=== PATIENT | female | born 1985 | race Caucasian/White ===

== ENCOUNTER → 2023-12-13 00:28 | Outpatient (CLI) | payer BC, SELFPAY ==
--- OUTSIDE RECORDS SUMMARY | 2023-12-13 00:58 | XMS_ITS | Encounter Summary ---
Author Organization [place] [address] Care Team Providers Care Coconut Candy Maker Name Role Phone Lily Webber APRN Primary Care Provider [phone] Reason for Referral * Consultation (Priority 3) - Closed Specialty Diagnoses / Procedures Referred By Leydi valles Referred To Contact Dermatology Diagnoses Melanocytic nevus, unspecified location numerous moles, fam hx melanoma Lily Webber, GROCERY SHOPPER [address] [place] [address] [facility] [address] [place] [address] Referral ID Status Reason Start Date Expiration Date V isits Requested Visits Authorized [id number] Closed Consult, Test & Treat PCP Updated and/or Approved 11/30/2022 11/30/2023 6 6 Encounter Details Date Type Department Care Team (Latest Contact Info) Description 11/30/2022 Transcribe Orders eDH Incoming Referrals [phone] Lily Webber, GROCERY SHOPPER [address] [place], [place] [id number] Melanocytic nevus, unspecified location Social History Tobacco Use Types Packs/Day Years Used Date Smoking Tobacco: Never Assessed Sex and Gender Information Value Date Recorded Sex Assigned at Not on file Gender Identity Not on file Sexual Orientation Not on file documented as of this encounter Plan of Treatment Scheduled Referrals Name Type Priority Associated Diagnoses Orde r Schedule Referral to Dermatology Outpatient Referral Routine Melanocytic nevus, unspecified location Ordered: 11/30/2022 documented as of this encounter Visit Diagnoses Diagnosis Melanocytic nevus, unspecified location documented in this encounter Care Teams Coconut Candy Maker Relationship Specialty Start Date End Date Lily Webber, GROCERY SHOPPER [address] [place] [address] PCP - General Internal Medicine 11/30/22 documented as of this encounter
--- OUTSIDE RECORDS SUMMARY | 2023-12-13 00:58 | XMS_ITS | Clinical Summary ---
Author Organization [facility] [place] [address] Care Team Providers Care Womens Volleyball Coach Name Role Phone Lily Webber APRN Primary Care Provider Social History Tobacco Use Types Packs/Day Years Used Date Smoking Tobacco: Never Assessed Sex and Gender Information Value Date Recorded Sex Assigned at Not on file Gender Identity Not on file Sexual Orientation Not on file Plan of Treatment Health Maintenance Due Date Last Done Comments HIV screen 2001 Hepatitis C Screening 2001 Hepatitis B vaccine (0-59 yrs) (1) 2002 Tdap adult 2002 Tetanus vaccine 2002 HPV test 2013 PAP Smear 2013 Breast Cancer Share Decision Needed 2023 Breast Cancer screening 2023 Covid-19 Vaccine ( - 24 season) 2023 Influenza (Flu) vaccine (1 o f 1 - Influenza standard series) 02/02/2024 Care Teams Womens Volleyball Coach Relationship Specialty Start Date End Date Lily Webber APRN [address] [place], [place] [address] PCP - General Internal Medicine 11/30/22
--- OUTSIDE RECORDS SUMMARY | 2023-12-13 00:58 | XMS_ITS | Encounter Summary ---
Author Organization [facility] [place] [address] Care Team Providers Care Clinical Applications Manager Name Role Phone Lily Webber APRN Primary Care Provider [phone] Encounter Details Date Type Department Care Team (Latest Contact Info) Description 05/17/2023 Travel Social History Tobacco Use Types Packs/Day Years Used Date Smoking Tobacco: Never Assessed Sex and Gender Information Value Date Recorded Sex Assigned at Not on file Gender Identity Not on file Sexual Orientation Not on file documented as of this encounter Plan of Treatment Not on file documented as of this encounter Visit Diagnoses Not on filedocumented in this encounter Care Teams Clinical Applications Manager Relationship Specialty Start Date End Date Lily Webber APRN [address] [place] [address] PCP - General Internal Medicine 11/30/22 documented as of this encounter
--- OUTSIDE RECORDS SUMMARY | 2023-12-13 00:58 | XMS_ITS | Encounter Summary ---
Author Organization [facility] Address [facility] [place] [address] Care Team Providers Care Education Finance Processor Name Role Phone Lily Webber CAMPAIGN MANAGEMENT SPECIALIST Primary Care Provider [phone] Reason for Visit * Consultation (Priority 3) - Closed Specialty Diagnoses / Procedures Referred By Leydi valles Referred To Contact Dermatology Diagnoses Melanocytic nevus, unspecified location numerous moles, fam hx melanoma Lily Webber, CAMPAIGN MANAGEMENT SPECIALIST [address] [place] [address] [facility] [address] [place] [address] Referral ID Status Reason Start Date Expiration Date V isits Requested Visits Authorized [id number] Closed Consult, Test & Treat PCP Updated and/or Approved 11/30/2022 11/30/2023 6 6 Encounter Details Date Type Department Care Team (Late st Contact Info) Description 05/17/2023 8:00 AM EST Office Visit Dermatology at [facility] [address] [place] [address] Tavo Almazan MD [facility] DR SHAMIKA CAB[place] [address] Milia; Lentigines; Multiple benign nevi of upper extremity, lower extremity, and trunk; Simms angioma; Plantar wart; Irritated nevus Social History Tobacco Use Types Packs/Day Years Used Date Smoking Tobacco: Never Assessed Sex and Gender Information Value Date Recorded Sex Assigned at Not on file Gender Identity Not on file Sexual Orientation Not on file documented as of this encounter Progress Notes * Tavo Almazan MD - 05/17/2023 8:00 AM EST Images from the original note were not included. DEPARTMENT OF DERMATOLOGY Medical Dermatology Clinic Note Provider: Tavo Almazan MD Patient's preferred name Meg Preferred contact method for results [x]Phone []myD-H []Letter Detailed phone message OK? Yes Are there any other people with whom we may discuss your care? Past Medical History Date, location, treatment Melanoma N Dysplastic nevi N SCC N BCC N AKs N UV Exposure & Protection N Other relevant past medical history N Family History Details Melanoma -- NMSC -- Other relevant family history Aunt with unknown type of skin cancer Social History Occupation: Principal Hobbies: Other: Originally from [place] but recently moved to [place] from [place] Pre-Procedure Questions Details Allergy to lidocaine, epinephrine, Dermabond, chlorhexidine, or adhesives Bleeding disorder or blood thinners Implanted devices (Pacemaker, defibrillator, deep brain stimulator, cochlear implant) History of Present Illness: Meg Ascencio is a 38 y.o. Patient is referred to the clinic at the request of Lily Webber for a full skin exam with the following concerns: -States there is a mole in the right axilla that is not new. Becoming more raised. -Wart on the right plantar foot that has been present for a year Review of Systems: General: Feeling well. Skin: No other skin concerns. Medications: Reviewed in eD-H Allergies: Reviewed in eD-H Skin Examination: Full skin examination: Patient asked to undress to their comfort level. Verbalized that the provider???s preference is that the patient remove all clothing and that the provider will not examine areas patient elects to keep covered. Patient elects to keep underwear on and have the following examined: scalp, hair, face, ears, neck, chest, axillae, abdomen, back, and upper and lower extremities. Genitalia and buttocks were not examined. Assessment/Plan #. Wart (Verruca Vulgaris) - Verrucous papule on the right plantar foot with pin-point vascular pattern noted on dermoscopy. - Discussed viral etiology (relative of HPV in skin) and rationale for therapy directed at reducingviral load and virus ultimately being controlled by immune response. - Reviewed in-office and at-home treatment options. - [place] decision to proceed with cryotherapy in the clinic today. Patient is aware that multiple treatments may be required. Procedure: Destruction of lesion(s) with cryotherapy (LN2). Location(s): As noted above Number: 1 Discussed procedure and expectations including risks (especially hypopigmentation) and benefits. Verbal consent obtained. Site pared down with a #15 blade. Frozen with LN2, 15-30 second thaw time, twice. There were no complications; patient tolerated the procedure well. Post-procedure expectations and wound care reviewed. #. Irritated Nevus - Brown fleshy papule on the right upper arm - Continue to monitor. Return to clinic with any changes or concerns #. Milia - 0.1 cm firm, round, white subcutaneous papules on the forehead. - Discussed benign nature of lesions and provided reassurance. No treatment necessary. #. Lentigines - Scattered light-brown, evenly pigmented, well-demarcated macules on sun-exposed areas of the trunk and extremities. - No worrisome pigmented lesions. Discussed benign nature of lesions and provided reassurance. Willcontinue to monitor. #. Melanocytic Nevi - Scattered medium brown, evenly pigmented macules and papules on the trunk andextremities with reassuring pigment pattern on dermoscopy. 4 x 4 mm homogenous brown macule on the right second toe (Figure 1); 3 x 3 mm homogenous brown macule on the right plantar foot - Discussed benign appearing nature of lesions based on today's exam and provided reassurance. Willcontinue to monitor. #. Simms Angiomas - Multiple bright red, well-demarcated papules on the trunk and extremities. - Discussed benign nature of lesions and provided reassurance. No treatment necessary at this time. Figure 1 Photo(s) taken and charted with patient's verbal consent. Other: Sun protection discussed (protective clothing and SPF30+ broad-spectrum sunscreen) RTC: 1 year for FSE []Note routed to principal secretary [x]Recall placed in scheduling system []Appointment scheduled at checkout Scribe attestation: Gatito Harris CMA has performed the documentation for this encounter inthe presence of and acting as a scribe for Tavo Almazan MD. I performed the above scribed service and agree with the accuracy of the documentation in this encounter. Reviewed and signed by: Tavo Almazan MD Dermatology [facility] Patient seen and evaluated with staff armature coil winder: Meg Paris MD Department of Dermatology [facility] * Meg Paris MD - 05/17/2023 8:00 AM EST I directly supervised Tavo Almazan MD in the care of this patient. I saw and evaluated this patient with Tavo Almazan MD. Tavo Almazan MD presented the history and physical exam details to me, then we saw the patient together, and I confirmed these findings. I agree with details as written. My physical examination confirms Tavo Almazan MD's findings. The assessment and plan were formulated in discussion with me at the time of visit, and I agree with them as documented. Meg Paris MD Staff Gas Station Clerk Department of Dermatology [facility] documented in this encounter Miscellaneous Notes * Addendum Note - Meg Paris MD - 05/17/2023 8:00 AM ESTAddended by: MEG PARIS on: 05/17/2023 08:33 AM Modules accepted: Level of Service documented in this encounter Plan of Treatment Scheduled Referrals Name Type Priority Associated Diagnoses Orde r Schedule Referral to Dermatology Outpatient Referral Routine Melanocytic nevus, unspecified location Ordered: 11/30/2022 documented as of this encounter Visit Diagnoses Diagnosis Milia Sebaceous cyst Lentigines Other dyschromia Multiple benign nevi of upper extremity, lower extremity, and trunk Simms angioma Nevus, non-neoplastic Plantar wart Irritated nevus documented in this encounter Care Teams Education Finance Processor Relationship Specialty Start Date End Date Lily Webber, CAMPAIGN MANAGEMENT SPECIALIST [address] [place] [address] PCP - General Internal Medicine 11/30/22 documented as of this encounter
--- OUTSIDE RECORDS SUMMARY | 2023-12-13 00:58 | XMS_ITS | Encounter Summary ---
Author Organization [facility] [place] [address] Care Team Providers Care Rag Washer Name Role Phone Lily Webber APRN Primary Care Provider [phone] Encounter Details Date Type Department Care Team (Late st Contact Info) Description 11/30/2022 Transcribe Orders eD Incoming Referrals [phone] Lily Webber APRN [address] [place] [address] Social History Tobacco Use Types Packs/Day Years Used Date Smoking Tobacco: Never Assessed Sex and Gender Information Value Date Recorded Sex Assigned at Not on file Gender Identity Not on file Sexual Orientation Not on file documented as of this encounter Plan of Treatment Not on file documented as of this encounter Visit Diagnoses Not on filedocumented in this encounter Care Teams Rag Washer Relationship Specialty Start Date End Date Lily Webber APRN [address] [place] [address] PCP - General Internal Medicine 11/30/22 documented as of this encounter
--- NOTE | 2023-12-13 08:30 | DI.MAMMO_ITS ---
Exam(s) MAMMO SCREENING EXAM: MAMMO SCREENING CLINICAL HISTORY: Z12.39 screening TECHNIQUE: Mammograms were interpreted according to the usual protocol including computer analysis w [employer] CAD system, tomosynthesis and C-view imaging. COMPARISON: None. Baseline examination. FINDINGS: The breasts are composed of heterogeneously dense fibroglandular densities, Breast Density category C . No suspicious masses or suspicious microcalcifications are seen. Numerous bilateral punctate calcifi cations which appear benign. No skin thickening or abnormal axillary lymph nodes are seen. IMPRESSION: BI-RADS Category 2 - Negative Mammogram with benign findings. Yearly screening mammography is recom mended. Breast Density Category C, heterogeneously Dense. The mammogram demonstrates the patient's breast tissue is dense. Dense breast tissue is very common a nd is not abnormal but dense breast tissue can make it harder to find cancer on a mammogram. Also, de nse breast tissue may increase breast cancer risk. This information about the result of the mammogram report was provided to the patient to raise their awareness. Use this report when you speak with the patient about their risks for breast cancer, which includes their family history. At that time, you may recommend additional screening tests (Ultrasound or MRI) as they might be useful based on their r isk. A negative radiographic report should not delay biopsy if a dominant or clinically suspicious mass is present. Up to ten percent of cancers are not identified on mammography. A negative report may reinforce clinical impression. Adenosis and dense breasts may obscure an underlying neoplasm. False positive reports average 6 to 10%.
== END ==
PROVIDERS: PCP Nurse Practitioner; Visit Provider Nurse Practitioner
DX: Z12.39 Encounter for other screening for malignant neoplasm of breast (principal); Z12.31 Encounter for screening mammogram for malignant neoplasm of breast; R92.333 Mammographic heterogeneous density, bilateral breasts
CPT/HCPCS: 77063; 77067

== ENCOUNTER 2024-02-12 16:04 | Outpatient (REF) | payer BC, SELFPAY ==
--- NOTE | 2024-02-12 15:30 | PAPFT_PTH ---
PATIENT: Lindsey Ascencio LOC: [facility] U#:[id number] AGE/SX: 39/F ROOM: RE02/12/[address]: Lily Webber APRN : 1985 BED: DIS: 02/12/2024 SPEC #: [id number] RECD: 02/13/24 12:57 STATUS: LUDWIG RENataliya #: [id number] NORMA: 02/12/24 15:[address]: Lily Webber DEPT: [facility] Cytology RECD BY: Annalise Hou Tissues: 1 - CX/ENDOCX FOR PAP SMEARS Procedures: PAP THIN PREP/[facility] Screening HPV DNA PROBE Comments: [id number] (HPV 16 & 18/45)
== END 2024-02-12 16:05 | disposition home or self-care (01) ==
LOC: LBN 16:04
PROVIDERS: PCP Nurse Practitioner; Visit Provider Nurse Practitioner
DX: Z12.4 Encounter for screening for malignant neoplasm of cervix (principal)
CPT/HCPCS: 88142; 87624